=== PATIENT | female | born 1975 | race Caucasian/White ===

== ENCOUNTER 2016-05-24 12:45 | Inpatient (IN) | payer OTHER ==
[~2016-05-24] VITALS: Ht 142.2 cm; Wt 85.4 kg
[~2016-05-24 12:45] MED LIST: PREN-39 PO
[2016-05-24 14:02] VITALS: Ht 142.2 cm; Wt 85.4 kg
[2016-05-24] MEDS ORDERED: DEXTROSE 5% 1,000 ML IV STA (14:18)
--- NOTE | 2016-05-24 16:09 | RADRPT ---
PROCEDURE: OB ultrasound for biophysical profile CLINICAL INDICATION: Contractions. TECHNIQUE: Multiple sonographic images of the pelvis were obtained. Transabdominal view of the gr avid uterus are available for review. The images were reviewed on a PACS workstation. COMPARISON: OB ultrasound 05/10/2016. FINDINGS: breathing movement = 2/2 tone = 2/2 motion = 2/2 RYLIE = 2/2 RYLIE = 18.8 cm Single live intrauterine with cardiac activity. heart rate equals 120 beats p er minute. Presentation is cephalic. The placenta is fundal. IMPRESSION: 1. Single viable intrauterine gestation. 2. Biophysical profile = 8/8. 3. RYLIE = 18.8 cm. RPTAT: KK .Chandu Hendrix MD, MD Date Time Electronically viewed and signed by .Chandu Hendrix MD, MD on 05/24/2016 16:09 .B/
--- NOTE | 2016-05-24 16:11 | RADRPT ---
PROCEDURE: US OB - Limited weight. CLINICAL INDICATION: labor TECHNIQUE: Multiple sonographic images of the pelvis were obtained. Transabdominal imaging only w as performed. The images were reviewed on a PACS workstation. COMPARISON: No prior studies are available for comparison. FINDINGS: There is a single viable intrauterine gestation. Cardiac activity is present with 129 beats per min vanessa. There is a cephalic presentation. Measurements were made in order to determine age. The results are as follows: BPD = 8.2 cm HC = 30.1 cm AC = 33.3 cm FL = 7.3 .cm Estimated gestational age of approximately 35 weeks 2 days +/ - 2 weeks 3 days by ultrasound evalua tion The estimated date of delivery is a 417 by ultrasound evaluation. The EFW = 2903 g +/- 435.4 g (37.2%) by ultrasound evaluation. The placenta is fundal. IMPRESSION: 1. Single viable intrauterine gestation of approximately 35 weeks 2 days with estimated date of del magdalene of 06/26/2016 by ultrasound evaluation. 2. The estimated weight is 2903 g (37%) . RPTAT: KK .Chandu Hendrix MD, MD Date Time Electronically viewed and signed by .Chandu Hendrix MD, MD on 05/24/2016 16:11 .B/
[2016-05-24] MEDS: LACTATED RINGER'S 1,000 ML IV SCH (17:27)
[2016-05-24] MEDS ORDERED: OXYTOCIN 30 UNITS/LR 500 ML IV SCH (17:30)
[2016-05-24] MEDS ORDERED: MISOPROSTOL 200 MCG TAB PR PRN ×2 (17:30→20:00)
[2016-05-24] MEDS ORDERED: METHYLERGONOVINE 0.2 MG INJ IM PRN ×2 (17:30→20:00)
[2016-05-24] MEDS ORDERED: CARBOPROST 250 MCG INJ IM PRN ×2 (17:30→20:00)
[2016-05-24] MEDS ORDERED: CEFAZOLIN 2 GM/50 ML (PMX) 50 ML IV SCH (17:30)
[2016-05-24] MEDS ORDERED: OXYTOCIN 30 UNITS/LR 500 ML IV PRN ×2 (17:30→20:00)
[2016-05-24 17:36] LABS: BASOPHILS % 0.3 % (0.0-2.0); EOSINOPHILS % 0.2 % (0.0-7.0); HEMATOCRIT 37.3 % (37.0-47.0); HEMOGLOBIN 12.4 g/dl (12.0-16.0); LYMPHOCYTES # 2.2 10^3/ul (0.8-2.9); LYMPHOCYTES % 18.9 % (15.0-51.0); MEAN CORPUSCULAR HEMOGLOBIN 30.5 pg (29.0-33.0); MEAN CORPUSCULAR HGB CONC 33.3 g/dl (32.0-37.0); MEAN CORPUSCULAR VOLUME 91.5 fl (82.0-101.0); MEAN PLATELET VOLUME 10.4 fl (7.4-10.4); MONOCYTE # 0.6 10^3/ul (0.3-0.9); MONOCYTES % 5.4 % (0.0-11.0); NEUTROPHIL # 8.6 10^3/ul (1.6-7.5); NEUTROPHILS % 75.2 % (39.0-77.0); PLATELET COUNT 295 10^3/UL (140-440); RED BLOOD COUNT 4.08 10^6/ul (4.20-5.40); RED CELL DISTRIBUTION WIDTH 13.9 % (11.5-14.5); UNCORRECTED WBC 11.4 10^3/ul (4.8-10.8); WHITE BLOOD COUNT 11.4 10^3/ul (4.8-10.8)
[2016-05-24 17:38] LABS: CONDITION 1
[2016-05-24 17:50] LABS: INR 0.99; PROTIME 13.1 Sec (12.2-14.2)
[2016-05-24 17:51] LABS: PARTIAL THROMBOPLASTIN TIME 26.4 Sec (25.0-35.0)
[2016-05-24] MEDS ORDERED: ONDANSETRON 4 MG INJ ONE (18:23)
[2016-05-24] MEDS ORDERED: morphine SULFATE/PF (10 MG/10 ML) INJ ONE (18:23)
[2016-05-24] MEDS ORDERED: PHENYLephrine (100 MCG/ML) 5ML SYG ONE ×2 (18:24→19:12)
[2016-05-24] MEDS ORDERED: OXYTOCIN 10 UNIT INJ ONE (18:24)
[2016-05-24] MEDS ORDERED: METOCLOPRAMIDE 10 MG INJ ONE (19:10)
--- NOTE | 2016-05-24 19:55 | OPPN ---
Date/Time of Note Date/Time of Note DATE: 05/24/16 TIME: 19:48 Operative/Procedure Note 40 years old female 4 para 3 history of 3 previous at 37 weeks admitted to [facility] in active labor with request for tubal ligation at the time of her section, Pre-Operative Diagnosis Same as above Post-Operative Diagnosis Same as above Procedure Repeat for the fourth time with bilateral tubal ligation Surgeon: ANTONIO REYNOLDS MD Roll Up Helper: VINNY MUNGUIA MD Anesthesiologist: NAYELI PADILLA MD Findings Light baby girl 9 and 9 Implants/Grafts: Not applicable Estimated blood loss: other (600 mm) Drains: Not applicable Specimens: Not Applicable Anesthesia type: spinal ANTONIO REYNOLDS MD May 24, 2016 19:55
[2016-05-24] MEDS ORDERED: OXYCODONE/ACETAMINOPHEN (5/325) TAB PO PRN ×2 (20:00)
[2016-05-24] MEDS ORDERED: ACETAMINOPHEN/CODEINE #3 TAB PO PRN ×2 (20:00)
[2016-05-24] MEDS ORDERED: CEFAZOLIN 1 GM/50 ML (PMX) 50 ML IVPB SCH (20:00)
[2016-05-24] MEDS ORDERED: LANOLIN 7 GM TUBE TOP PRN (20:00)
[2016-05-24] MEDS ORDERED: morphine 2 MG INJ IV PRN (21:00)
[2016-05-24] MEDS ORDERED: NALOXONE (0.4 MG/ML) INJ IV PRN (21:00)
[2016-05-24] MEDS ORDERED: DIPHENHYDRAMINE 50 MG INJ IV PRN (21:00)
[2016-05-24] MEDS: KETOROLAC 30 MG INJ IV PRN (21:54)
[2016-05-24] MEDS: ONDANSETRON 4 MG INJ IV PRN (21:54)
--- NOTE | 2016-05-24 22:11 | HP ---
Date/Time of Note Date/Time of Note DATE: 05/24/16 TIME: 21:36 OB - History Hx of Present Free Text/Dictation 40 y/o /4para/ 3 history of 3 previous c section admitted at 37 weeks in labor with request for bilateral tubal ligation being prepared for the surgery( repeat c section &bilateral tubal ligation pt was counseled regarding the operation and complication may arise from this surgery including but not limited to bowl and bladder injury ,wound infection ,hematoma and ,pp hemorrhage ,after,all the question answered pt signed the consent for the procedure c Chief Complaint: lobor pain Estimated Due Date: Jun 14, 2016 : 4 Para: 3 Care: Good Care Ultrasounds: Normal mid trimester US Obstetrical Complications: None Medical Complications: None Past Family/Social History * Past Medical, Surgical, Family and Obstetric Histories reviewed from chart. Rubella: immune RPR/VDRL: Negative GBS Status: Negative HBsAG: Negative OB Admission Exam Physical Exam HEENT: WNL Heart: Rhythm Normal Lungs: Clear, Equal Abdomen: WNL Extremities: Normal Reflexes: Normal Cervical Dilatation: None Effacement: 50% Membranes: Intact Heart Rate: 130's Accelerations: Accelerations Present Decelerations: No Decelerations Varibility: Moderate Contractions on Admission: < 5 Minutes Apart Intensity: Mild Last 72 hours Lab Results CBC & BMP 05/24/16 15:30 ANTONIO REYNOLDS MD May 24, 2016 22:10
--- NOTE | 2016-05-24 22:24 | DELSUM ---
Delivery Summary A-C Datetime Report Generated by CPN: 05/24/2016 22:23 DELIVERY PERSONNEL Community Outreach Coordinator: Petrona Pachecoa MATERNAL INFORMATION Delivery Anesthesia: Spinal Medications in Delivery: see anesthesia Estimated Blood Loss (ml): 600 Placenta Cultured: No Maternal Complications: Other Other Maternal Complications: c/s x3 in labor RN Comments: UTERINE "WINDOW" NOTED UPON INCISION DELO LABOR SUMMARY EDC: 06/14/2016 00:00 No. Babies in Womb: 1 Attempted: No Labor Anesthesia: None LABOR INFORMATION Reason for Induction: Postterm Oxytocin: N/A Group B Beta Strep: Positive Antibiotics # of Doses: 1 Antibiotics Time of Last Dose: 1814 Steroids Given: Partial Course Reason Steroids Not Administered: Indication MEMBRANES Membranes Rupture Method: Artificial Rupture of Membranes: 05/24/2016 18:55 Length of Rupture (hr): 0.02 Amniotic Fluid Color: Clear Amniotic Fluid Amount: Moderate Amniotic Fluid Odor: None STAGES OF LABOR Stage 3 hr: 0 Stage 3 min: 1 CSECTION DELIVERY Primary Indication: > 2 Previous CSections Secondary Indication: N/A CSection Urgency: Non Elective CSection Incidence: Repeat Labor: Labor Elective: Nonelective CSection Incision: Lower Uterine Transverse Sterilization Procedure: [place] BABY A INFORMATION Infant Delivery Date/Time: 05/24/2016 18:56 Method of Delivery: Born in Route : No : N/A Forceps: N/A Vacuum Extraction: N/A Shoulder Dystocia : N/A SHOULDER DYSTOCIA BABY A Infant Delivery Date/Time: 05/24/2016 18:56 PRESENTATION/POSITION BABY A Presentation: Cephalic Cephalic Presentation: Vertex Vertex Position: Left Occipital Anterior Breech Presentation: N/A PLACENTA INFORMATION BABY A Placenta Delivery Time : 05/24/2016 18:57 Placenta Method of Delivery: Spontaneous Placenta Status: Delivered SCORES BABY A Heart Rate 1 min: >100 bpm Resp Effort 1 min: Good Cry Reflex Irritability 1 min: Cough/Sneeze/Pulls Away Muscle Tone 1 min: Active Motion Color 1 min: Blue/Pale Resuscitation Effort 1 min: Tactile Stimulation SCORE 1 MIN: 8 Heart Rate 5 min: >100 bpm Resp Effort 5 min: Good Cry Reflex Irritability 5 min: Cough/Sneeze/Pulls Away Muscle Tone 5 min: Active Motion Color 5 min: Body Lester, Extremit Blue Resuscitation Effort 5 min: Tactile Stimulation SCORE 5 MIN: 9 INFORMATION BABY A Gestational Age at Delivery: 37.0 Gestational Status: Early Term- 37- 38.6 Weeks Outcome : Liveborn Condition : Stable Sex: Female IDENTIFICATION/MEDS BABY A ID Band Number: [id number] ID Band Location: Right Leg; Left Arm Sensor Applied: Yes Sensor Number: [id number] Sensor Location : Cord Clamp Vitamin K Given : Not Given Erythromycin Given: Not Given WEIGHT/LENGTH BABY A Infant Birthweight (gm): 2850 Weight (lb): 6 Infant Weight (oz): 5 Infant Length (in): 18.50 Length (cm): 46.99 CORD INFORMATION BABY A No. Cord Vessels: 3 Nuchal Cord : N/A Cord Blood Taken: Yes Suction: Mouth; Nose ASSESSMENT BABY A Complications: None Physical Findings at Delivery: Within Normal Limits Infant Respirations: Appears Normal Hydraulic Press Servicer/ALS Called : No Care By: DENISA/TROY Transferred To: Remains with Mother
[2016-05-24 22:50] VITALS: BP 118/57; PULSE 60; RESP 19
[2016-05-24] MEDS: SENNA/DOCUSATE NA (8.6MG/50MG) TAB PO SCH (23:00)
[2016-05-24 23:30] VITALS: BP 112/60; PULSE 66; RESP 18
[2016-05-24] MEDS: OXYTOCIN 30 UNITS/LR 500 ML IV SCH (23:45)
[2016-05-25] VITALS: BP 97/54; PULSE 64; RESP 18
[2016-05-25 01:00] VITALS: BP 99/54; PULSE 62; RESP 19
[2016-05-25] MEDS: LACTATED RINGER'S 1,000 ML IV SCH ×2 (01:12→10:52)
[2016-05-25] MEDS: OXYTOCIN 30 UNITS/LR 500 ML IV SCH ×2 (01:59→06:49)
[2016-05-25] MEDS: ONDANSETRON 4 MG INJ IV PRN (03:21)
[2016-05-25] MEDS: KETOROLAC 30 MG INJ IV PRN (03:22)
[2016-05-25 04:05] VITALS: BP 93/51; PULSE 59; RESP 18
[2016-05-25] MEDS: IBUPROFEN 600 MG TAB PO SCH ×4 (06:00→23:46)
[2016-05-25 08:00] VITALS: BP 108/57; PULSE 62; RESP 18
[2016-05-25 08:25] LABS: HEMATOCRIT 30.9 % (37.0-47.0); HEMOGLOBIN 10.4 g/dl (12.0-16.0); LYMPHOCYTES # 1.5 10^3/ul (0.8-2.9); LYMPHOCYTES % 10.6 % (15.0-51.0); MEAN CORPUSCULAR HEMOGLOBIN 30.8 pg (29.0-33.0); MEAN CORPUSCULAR HGB CONC 33.7 g/dl (32.0-37.0); MEAN CORPUSCULAR VOLUME 91.5 fl (82.0-101.0); MEAN PLATELET VOLUME 9.5 fl (7.4-10.4); MONOCYTE # 0.6 10^3/ul (0.3-0.9); MONOCYTES % 4.1 % (0.0-11.0); NEUTROPHIL # 11.7 10^3/ul (1.6-7.5); NEUTROPHILS % 85.3 % (39.0-77.0); PLATELET COUNT 235 10^3/UL (140-440); RED BLOOD COUNT 3.38 10^6/ul (4.20-5.40); RED CELL DISTRIBUTION WIDTH 13.9 % (11.5-14.5); UNCORRECTED WBC 13.7 10^3/ul (4.8-10.8); WHITE BLOOD COUNT 13.7 10^3/ul (4.8-10.8)
[2016-05-25 08:49] LABS: CONDITION 1
[2016-05-25] MEDS: SENNA/DOCUSATE NA (8.6MG/50MG) TAB PO SCH ×2 (09:43→20:16)
--- NOTE | 2016-05-25 10:04 | PN ---
Date/Time of Note Date/Time of Note DATE: 05/25/16 TIME: 10:03 OB Subjective Subjective Subjective Post day 1 Afebrile vital sign a stable abdomen soft lochia moderate extremity normal ambulation recommended. Laboratory Tests Test 05/24/16 15:30 05/24/16 16:00 05/24/16 17:35 05/24/16 19:20 Basophils # 0.010^3/ul Basophils % 0.3% Blood Morphology Comment Eosinophils # 0.010^3/ul Eosinophils % 0.2% Hematocrit 37.3% Hemoglobin 12.4g/dl Lymphocytes # 2.210^3/ul Lymphocytes % 18.9% Mean Corpuscular Hemoglobin 30.5pg Mean Corpuscular Hemoglobin Concent 33.3g/dl Mean Corpuscular Volume 91.5fl Mean Platelet Volume 10.4fl Monocytes # 0.610^3/ul Monocytes % 5.4% Neutrophils # 8.610^3/ul Neutrophils % 75.2% Nucleated Red Blood Cells # 0.010^3/ul Nucleated Red Blood Cells % 0.0/100WBC Platelet Count 78072^3/UL Red Blood Count 4.0810^6/ul Red Cell Distribution Width 13.9% White Blood Count 11.410^3/ul Rapid Plasma Reagin NONREACTIVE Activated Partial Thromboplast Time 26.4Sec INR International Normalized Ratio 0.99 Prothrombin Time 13.1Sec Prothrombin Time Ratio 1.0 Hepatitis B Surface Antigen NEGATIVE Test 05/25/16 07:50 Basophils # 0.010^3/ul Basophils % 0.0% Eosinophils # 0.010^3/ul Eosinophils % 0.0% Hematocrit 30.9% Hemoglobin 10.4g/dl Lymphocytes # 1.510^3/ul Lymphocytes % 10.6% Mean Corpuscular Hemoglobin 30.8pg Mean Corpuscular Hemoglobin Concent 33.7g/dl Mean Corpuscular Volume 91.5fl Mean Platelet Volume 9.5fl Monocytes # 0.610^3/ul Monocytes % 4.1% Neutrophils # 11.710^3/ul Neutrophils % 85.3% Nucleated Red Blood Cells # 0.010^3/ul Nucleated Red Blood Cells % 0.0/100WBC Platelet Count 27645^3/UL Red Blood Count 3.3810^6/ul Red Cell Distribution Width 13.9% White Blood Count 13.710^3/ul Current Medications Medications (Trade) Dose Ordered Sig/Yifan Route PRN Reason Start Time Stop Time Status Last Admin Dose Admin Dextrose 1,000 ml @ 125 mls/hr Q8H STAT IV 05/24/16 14:18 05/24/16 17:13 DC 05/24/16 15:30 Lactated Ringer's 1,000 ml @ 125 mls/hr Q8H IV 05/24/16 17:12 05/24/16 17:27 Cefazolin Sodium/ Dextrose 50 ml @ 100 mls/hr ONCE IV 05/24/16 17:30 Oxytocin/Lactated Ringer's 500 ml @ 125 mls/hr ONCE IV 05/24/16 17:30 05/24/16 21:55 Oxytocin/Lactated Ringer's 500 ml @ 0 mls/hr ONCE PRN IV For Hemorrhage Management 05/24/16 17:30 Methylergonovine Maleate (Methergine) 0.2 mg ONCE PRN IM VAGINAL BLEEDING 05/24/16 17:30 Carboprost Tromethamine (Hemabate) 250 mcg ONCE PRN IM VAGINAL BLEEDING 05/24/16 17:30 Misoprostol (Cytotec) 1,000 mcg ONCE PRN [place] VAGINAL BLEEDING 05/24/16 17:30 Morphine Sulfate (Duramorph) 10 mg STK-MED ONCE .ROUTE 05/24/16 18:23 05/24/16 18:24 DC Ondansetron HCl (Zofran Inj) 4 mg STK-MED ONCE .ROUTE 05/24/16 18:23 05/24/16 18:24 DC Oxytocin (Oxytocin) 10 units STK-MED ONCE .ROUTE 05/24/16 18:24 05/24/16 18:25 DC Phenylephrine HCl (Dread-Synephrine Inj Syg) 500 mcg STK-MED ONCE .ROUTE 05/24/16 18:24 05/24/16 18:25 DC Metoclopramide HCl (Reglan) 10 mg STK-MED ONCE .ROUTE 05/24/16 19:10 05/24/16 19:11 DC Phenylephrine HCl (Dread-Synephrine Inj Syg) 500 mcg STK-MED ONCE .ROUTE 05/24/16 19:12 05/24/16 19:13 DC Acetaminophen/ Codeine Phosphate (Tylenol No.3) 1 tab Q4H PRN PO PAIN LEVEL 4-6 05/24/16 20:00 Acetaminophen/ Codeine Phosphate (Tylenol No.3) 2 tab Q4H PRN PO PAIN LEVEL 7-10 05/24/16 20:00 Oxycodone/ Acetaminophen (Percocet (5/ 325)) 1 tab Q4H PRN PO PAIN LEVEL 4-6 05/24/16 20:00 Oxycodone/ Acetaminophen (Percocet (5/ 325)) 2 tab Q4H PRN PO PAIN LEVEL 7-10 05/24/16 20:00 Ibuprofen (Motrin) 600 mg Q6 PO 05/25/16 00:00 Simethicone (Mylicon) 160 mg Q8H PRN PO DISTENSION/GAS/BLOATING 05/24/16 20:00 Senna/Docusate Sodium (Senokot-S) 1 tab BID PO 05/24/16 21:00 05/25/16 09:43 Lanolin (Njv-O-Qndjaj) 1 applic BEDSIDE MEDICATION PRN TOP BEDSIDE FOR LUCY TO NIPPLES 05/24/16 20:00 05/25/16 01:59 Diphtheria/ Tetanus/Acell Pertussis 0.5 ml 0.5 ml ONCE ONCE IM* 05/27/16 09:00 05/27/16 09:01 Oxytocin/Lactated Ringer's 500 ml @ 0 mls/hr ONCE PRN IV For Hemorrhage Management 05/24/16 20:00 Methylergonovine Maleate (Methergine) 0.2 mg ONCE PRN IM VAGINAL BLEEDING 05/24/16 20:00 Carboprost Tromethamine (Hemabate) 250 mcg ONCE PRN IM VAGINAL BLEEDING 05/24/16 20:00 Misoprostol 1000 mcg 1,000 mcg ONCE PRN [place] VAGINAL BLEEDING 05/24/16 20:00 Cefazolin Sodium 50 ml @ 100 mls/hr ONCE IVPB 05/24/16 20:00 05/24/16 20:29 DC 05/25/16 01:56 Oxytocin/Lactated Ringer's 500 ml @ 125 mls/hr Q4H IV 05/24/16 19:45 05/25/16 06:49 Naloxone HCl (Narcan) 0.1 mg Q2M PRN IV FOR RESP RATE 8 OR LESS 05/24/16 21:00 05/25/16 20:59 Ketorolac Tromethamine (Toradol) 30 mg Q6H PRN IV PAIN 05/24/16 21:00 05/25/16 20:59 05/25/16 03:22 Morphine Sulfate (morphine) 2 mg Q3H PRN IV PAIN LEVEL 1-5 05/24/16 21:00 05/25/16 20:59 Diphenhydramine HCl (Benadryl) 25 mg Q6H PRN IV ITCHING 05/24/16 21:00 05/25/16 20:59 Ondansetron HCl (Zofran Inj) 4 mg Q6H PRN IV NAUSEA AND/OR VOMITING 05/24/16 21:00 05/25/16 20:59 05/25/16 03:21 Miscellaneous Information (* Miscellaneous Pharmacy Order) Duramorph: 0.2 mg spi... GIVEN XX 05/24/16 21:00 ANTONIO REYNOLDS MD May 25, 2016 10:04
--- NOTE | 2016-05-25 11:41 | OPR ---
DATE OF OPERATION: PREOPERATIVE DIAGNOSES: 1. Intrauterine at 37 weeks' gestation. 2. History of previous section, in active labor. 3. Request for voluntary sterilization/bilateral tubal ligation. POSTOPERATIVE DIAGNOSES: 1. Intrauterine at 37 weeks' gestation. 2. History of previous section, in active labor. 3. Request for voluntary sterilization/bilateral tubal ligation. PROCEDURE PERFORMED: Repeat transverse low cervical section, bilateral tubal ligation. SURGEON: Dr. Cano. HUMAN RESOURCE ADVISOR: Dr. Kodak Jarrell. ANESTHESIA: Spinal. ANESTHESIOLOGIST: Dr. Hayden. FINDINGS: Live baby girl with Apgars of 8 and 9. DETAILS OF THE PROCEDURE: Under satisfactory spinal anesthesia, the patient was prepped and draped and placed in supine position. Pfannenstiel incision was made. Old scar was removed. Incision carried through the subcutaneous tissue. Bleeders brought under control with electrocautery. Fascia incised to the length of the incision. Rectus muscle divided in midline. Peritoneum exposed, entered through a transverse incision. Exploration of abdomen revealed a gravid uterus at term, normal appearing tubes and ovaries, extremely thinned out lower segment of the uterus. Bladder flap was developed. Transverse incision was made in the lower segment of the uterus. Amniotic sac ruptured. Clear amniotic fluid noted. Live baby girl was delivered from unengaged vertex. Nasal oropharyngeal suction was performed, and baby handed to the team for immediate attention. The patient received 20 units of Pitocin. Placenta delivered manually, inspected. It was complete and sent to the pathologist. Uterine cavity cleaned with wet sponge and drainage established. Uterus closed in two layers using Monocryl #1 in continuous fashion. Tubal ligation performed by identifying the fimbria and the ampullar section of the right fallopian tube. Suture material used was #0 plain catgut which was reinforced with the same suture material, and a portion of the tube was excised, and cut end of the tube was cauterized and the specimen submitted for the pathology. The same procedure performed for the opposite side. Peritoneal cavity was irrigated with copious amounts of sterile water. Sponge, needle and instruments reported to be correct. Abdominal peritoneum closed with 2-0 chromic catgut continuously. Rectus muscle approximated with interrupted 2-0 chromic catgut. Fascia closed with #1 PDS. The subcutaneous tissue approximated with 2-0 chromic catgut. Skin closed with franco. Estimated blood loss was 600 mL. Urine bag contained 200 mL of clear urine. The patient tolerated the procedure well, transferred to recovery room in a good condition. Dictated By: ANTONIO ENGEL/JIMENA Conf#: [id number] DID#: [id number] MTDD
[2016-05-25 16:00] VITALS: BP 98/56; PULSE 72; RESP 18
[2016-05-25] MEDS ORDERED: DIPHENHYDRAMINE 1%/ZINC 28.3 GM CR TOP ONE (18:30)
[2016-05-25 20:05] VITALS: BP 94/51; PULSE 86; RESP 18
[2016-05-26 04:15] VITALS: BP 106/50; PULSE 66; RESP 18
[2016-05-26] MEDS: IBUPROFEN 600 MG TAB PO SCH ×3 (05:23→18:02)
[2016-05-26 08:00] VITALS: BP 99/56; RESP 18
[2016-05-26] MEDS: SENNA/DOCUSATE NA (8.6MG/50MG) TAB PO SCH ×2 (09:00→21:00)
--- NOTE | 2016-05-26 10:03 | PN ---
Date/Time of Note Date/Time of Note DATE: 05/26/16 TIME: 10:02 OB Subjective Subjective Subjective Post day 2 Afebrile vital sign stable, abdomen soft uterus firm incision dry, bowel sound present, no bowel movement, stringently normal ANTONIO REYNOLDS MD May 26, 2016 10:03
[2016-05-26] MEDS ORDERED: NA PHOSPHATE/BIPHOS 133 ML ENEMA PR ONE (10:30)
[2016-05-26] MEDS ORDERED: DIPHENHYDRAMINE 1%/ZINC 28.3 GM CR TOP PRN (12:30)
[2016-05-26 16:00] VITALS: BP 113/68; PULSE 68; RESP 20
[2016-05-26 20:05] VITALS: BP 98/51; PULSE 75; RESP 18
[2016-05-27] MEDS: IBUPROFEN 600 MG TAB PO SCH ×3 (00:49→11:41)
[2016-05-27 04:25] VITALS: BP 89/50; PULSE 72; RESP 18
[2016-05-27 07:30] VITALS: BP 101/60; PULSE 73; RESP 20
[2016-05-27] MEDS ORDERED: DIPHTH/TET/ACEL PERTUSS (ADULT) 0.5 ML VIAL IM* ONE (09:00)
[2016-05-27] MEDS: SENNA/DOCUSATE NA (8.6MG/50MG) TAB PO SCH (10:06)
--- NOTE | 2016-05-27 10:47 | DS ---
Date/Time of Note Date/Time of Note DATE: 05/27/16 TIME: 10:41 Obstetrical Discharge Record Final Diagnosis Final Diagnosis: Term delivered Section Section: Repeat Condition on Discharge Physical Assessment Last Vitals: Post day 3 This is a 40 years old Telugu female 4 para 3 history of 2 previous section admitted to the hospital for repeat section at 39 weeks gestation with request for bilateral tubal ligation, patient underwent the above mentioned surgery, her postoperative course in the hospital uneventful did not spike temp or having problem with bowel movement or urination , she is being discharged home with follow-up instruction to be seen at the clinic in 4 days to discontinue her franco ,patient received a prescription of analgesics and home wound care instruction. Voiding: Yes Bowel Movement: Yes Breast: Filling Fundus: Firm Abdomen and Incision: Dry and clean healing well Calf Tenderness: No Patient Condition: Good ANTONIO REYNOLDS MD May 27, 2016 10:47
--- NOTE | 2016-05-31 17:45 | NSTRPT ---
NST Information Datetime Report Generated by CPN: 05/31/2016 17:45 Datetime: 05/24/2016 10:15 NST Information EGA: 37.0 Test Number: 6 Time on Monitor: 05/24/2016 10:50 Time off Monitor: 05/24/2016 11:27 NST Duration (Min): 37 Reason for NST: IUGR Test and Monitor Explained: Monitor Explained; Test Explained; Verbalized Understanding Pulse: 68 Resp: 19 SBP: 107 DBP: 61 Test Evaluation NST Interventions: PO Hydration; Reposition Patient; Acoustic Stimulation Patient States Movement: Absent Contraction Frequency: none FHR Baseline : 120 Variability: Minimal - <=5bpm Accelerations: 15X15 Decelerations: None FHR Category: Category I NST Results: Questionable Comments: To u/s, RYLIE 15.1, cephalic strip reviewed by Dr. Krystyna MD recommends continued monitoring in OB Triage now. 113 6-Report to Dr Cano, inc Dr Greenwood's recommendations, order received to sent to triage. 1140-Report called to Chela Acuna. POC explained to pt. 1143-Pt to triage, denies further questions at this govind e, and has follow up appt for 2/2 @ 1000 Electronically Signed By E-Signature: with User ID: [id number] Datetime: 05/20/2016 10:20 NST Information EGA: 36.3 NST Duration (Min): 39 Datetime: 05/10/2016 10:40 NST Information EGA: 35.0 NST Duration (Min): 33 Datetime: 05/06/2016 10:10 NST Information EGA: 34.3 NST Duration (Min): 27 Datetime: 05/03/2016 10:06 NST Information EGA: 34.0 NST Duration (Min): 30 Datetime: 04/29/2016 09:55 NST Information EGA: 33.3 Datetime: 04/29/2016 09:26 NST Duration (Min): 27
== END 2016-05-27 15:48 | disposition home or self-care (01) | DRG 765 ==
LOC: L-D 12:45 → OBT 12:45 → L-D 17:19 → PP1 22:43
PROVIDERS: ADMIT Obstetrics & Gynecology; ATTEND Obstetrics & Gynecology
PROC: 10D00Z1 Extraction of Products of Conception, Low, Open Approach (ICD-10-PCS; principal; 2016-05-25)
PROC: 0UL70ZZ Occlusion of Bilateral Fallopian Tubes, Open Approach (ICD-10-PCS; 2016-05-25)
DX: O34.211 Maternal care for low transverse scar from previous cesarean delivery (principal); Z68.41 Body mass index [BMI] 40.0-44.9, adult; O99.214 Obesity complicating childbirth; E66.01 Morbid (severe) obesity due to excess calories; Z30.2 Encounter for sterilization; Z3A.37 37 weeks gestation of pregnancy; Z37.0 Single live birth
CPT/HCPCS: 36415; 76815; 76818; 85025; 85610; 85730; 86592; 86850; 86900; 86901; 86920; 87340; 88302; 88307; 90715; 94760; 96360; 96361; 99464; G0463; J0690; J1885; J2274; J2370; J2405; J2590; J2765; J7070; J7120